=== PATIENT | female | born 1970 | race Caucasian/White ===

== ENCOUNTER 2021-09-08 05:21 | Day surgery (SDC) | payer BC, SELFPAY ==
--- NOTE | 2021-09-05 16:28 | PCM.HP.BLA ---
History and Physical Date of Admission: 09/05/21 Pre-Op History and Physical ? HPI: The patient is a 51 year old female presenting for discussion regarding surgical intervention. Patient reports having irregular bleeding despite taking Aygestin. Patient reports is taking Aygestin 5 mg 3-4 times daily. Patient reports she is spotting on daily basis. When she does have her menses its lasting for approximately 2 weeks. Patient reports she is now having clots and more discomfort with cramping. Patient at this time would like to proceed with surgical intervention. Patient has had a previous uterine ablation. Patient offers no other concerns today. ? Pre-operative visit. She is scheduled for TLH, b/l salpingectomy and cysto, for AUB, dysmenorrhea, s/p uterine ablation on 09/08/21. Procedure discussed along with risks, benefits and complications. Other alternatives discussed for management. Consent form signed? Yes. ? ? PAST MEDICAL HISTORY PAST MEDICAL HISTORY Diagnosis Date ? Carpal tunnel syndrome on both sides ? ? Flat feet ? ? Heartburn 08/12/2018 ? Hypoglycemia ? ? Hypoglycemia, unspecified ? ? Migraines ? ? Previously seeing neurology ? Multiple thyroid nodules ? ? Obesity (BMI 30-39.9) ? ? Other forms of migraine ? ? ? PAST SURGICAL HISTORY PAST SURGICAL HISTORY Procedure Laterality Date ? HYSTEROSCOPY ? 08/22/2018 ? HYSTEROSCOPY WITH ENDOMETRIAL ABLATION ? LAPAROSCOPIC CHOLEYCYSTECTOMY ? 1997 ? Cholecystectomy, lap ? LIGATE FALLOPIAN TUBE ? 1997 ? Tubal ligation ? PAST SURGICAL HISTORY OF Bilateral 2006 ? Heel Spur Surgery ? PAST SURGICAL HISTORY OF Right 1987 ? Wrist surgery DeQuervains and cysts ? REVISE MEDIAN N/CARPAL TUNNEL SURG Bilateral 12/04/2018 ? Bilateral carpal tunnel syndrome and excision of soft tissue mass right index finger ? SHOULDER SURGERY HX Left 2005 ? TUBAL LIGATION HX ? 1996 ? ? ? CURRENT MEDICATIONS Current Outpatient Medications Medication Sig Dispense Refill ? meloxicam (MOBIC) 15 mg tablet TAKE 1 TABLET BY MOUTH EVERY DAY 30 tablet 1 ? norethindrone (AYGESTIN) 5 mg tablet Take 1 tablet by mouth once daily. 90 tablet 0 ? multivitamin (MULTIPLE VITAMINS ORAL) Take by mouth once daily. ? ? ? IBUPROFEN 800 MG TAB Take one(1) tablet every eight(8) hours as needed for pain. ? 0 ? docusate sodium (COLACE) 100 mg capsule Take 1 capsule by mouth twice daily. 30 capsule 0 ? oxyCODONE-acetaminophen (PERCOCET) 5-325 mg tablet Take 1 tablet by mouth every 6 hours as needed for pain. FOR PAIN. 5 tablet 0 ? norethindrone (AYGESTIN) 5 mg tablet Take 1 tablet by mouth once daily. 30 tablet 5 ? No current facility-administered medications for this visit. ? ? ALLERGIES: Lodine [Etodolac], Nsaids (Non-Steroidal Anti-Inflammatory Drug), and Vicodin [Hydrocodone-Acetaminophen] ? PERSONAL HISTORY: SOCIAL HISTORY Social History ? Tobacco Use ? Smoking status: Former Smoker ? ? Packs/day: 0.50 ? ? Years: 20.00 ? ? Pack years: 10.00 ? ? Types: Cigarettes ? ? Quit date: 02/07/2006 ? ? Years since quittin.5 ? Smokeless tobacco: Never Used Vaping Use ? Vaping Use: Never used Substance Use Topics ? Alcohol use: Yes ? ? Comment: 1/year ? Drug use: No ? FAMILY HISTORY: FAMILY HISTORY FAMILY HISTORY Problem Relation Age of Onset ? Breast Cancer Mother ? ? Hypertension Mother ? ? Diabetes Mother ? ? Heart Mother ? ? Hyperlipidemia Father ? ? other (dementia) Father ? ? Prostate Cancer Brother ? ? other (throat cancer) Brother ? ? Breast Cancer Maternal Grandmother ? ? Diabetes Maternal Aunt ? ? Coronary Artery Disease Mother ? ? Psychiatry Mother ? ? Colon Cancer Maternal Grandmother ? ? Coronary Artery Disease Paternal Grandfather ? ? Coronary Artery Disease Maternal Grandfather ? ? Coronary Artery Disease Maternal Grandmother ? ? Coronary Artery Disease Paternal Grandmother ? ? Coronary Artery Disease Father ? ? ? REVIEW OF SYMPTOMS: negative except as noted above PHYSICAL EXAMINATION: ? VITALS: Blood pressure 136/80, height 5' (1.524 m), weight 194 lb (88 kg), last menstrual period 05/25/2021. ? GENERAL: The patient is well nourished, well hydrated in no acute distress. , The patient is oriented to time, place, and person. NECK: full range of motion LUNGS: Clear to auscultation bilaterally. no wheezes, rhonchi or rales HEART: Regular rate and rhythm, Normal heart sounds and No murmurs or gallops GENITALIA: Normal external genitalia, Urethral meatus normal, Bladder nontender, normal vagina and normal vaginal tone, normal uterus, size and consistency, normal adnexa without masses or tenderness and perineum WNL WET PREP: Not indicated ? IMPRESSION: AUB, dysmenorrhea, status post endometrial ablation ? PLAN: TLH, Bilateral salpingectomy, Cysto ? ? Pt has been counseled on risks/benefits and alternatives of surgery including but not limited to anesthesia, bleeding, infection, injury to pelvic structures including bowel, bladder, ureters and vessels. Pt wishes to proceed with surgery at this time. ? COVID testing reviewed ? Pre and postop instructions reviewed. Postoperative medications reviewed and ordered. Patient will use Mobic after surgery. Discussed with her she will go home same day of surgery as long as there is no complications and she is meeting criteria. I have reviewed and updated past medical and surgical history, medications and allergies ? Neyda Rodríguez MD Office Visit on 08/26/2021 Office Visit on 08/26/2021 Note shared with patient
[2021-09-07 10:40] LABS: Hematocrit 42.6 % (37-47); Hemoglobin 13.6 g/dL (12.0-15.0); Mean Corp Hgb Conc 31.9 g/dL (32-36); Mean Corpuscular Volume 87.7 fL (81-99); Mean Platelet Vol. 10.3 fl (6.2-12.0); Platelet Count 305 K/mm3 (150-450); RBC Distribution Width CV 14.3 % (11.6-14.6); RBC Distribution Width SD 46.5 fl (35.1-43.9); Red Blood Count 4.86 M/mm3 (4.2-5.4); White Blood Count 9.7 K/mm3 (4.4-11.0)
[2021-09-07 11:02] LABS: Magnesium 2.1 mg/dL (1.6-2.6)
[2021-09-07 11:11] LABS: Anion Gap 4 (5-15); BUN 10 mg/dL (7-18); Calcium,Total 8.6 mg/dL (8.5-10.1); Chloride 108 mmol/L (98-107); Creatinine, Serum 0.72 mg/dL (0.55-1.02); EST Glomerular Filtration Rate 91 mL/min (>60); Est Glom Filt Rate - Afr Amer 110 mL/min (>60); Glucose 90 mg/dL (74-106); Potassium 4.3 mmol/L (3.5-5.1); Sodium Level 138 mmol/L (136-145)
[2021-09-08] VITALS (8 sets, daily range): BP systolic 124–140; BP diastolic 68–88; PULSE 67–85; RESP 16–18; TEMP 36.1–36.7; O2SAT 98–100; BMI 37.7
[2021-09-08] MEDS: Lactated Ringers 1,000 ML 40 ML IV (06:10)
--- NOTE | 2021-09-08 06:12 | EKG12_ITS ---
Test Reason : PRE-OP Blood Pressure : / mmHG Vent. Rate : 071 BPM Atrial Rate : 071 BPM P-R Int : 110 ms QRS Dur : 082 ms QT Int : 394 ms P-R-T Axes : 030 027 019 degrees QTc Int : 428 ms Sinus rhythm with sinus arrhythmia with short IA Otherwise normal ECG Confirmed by SANNA STEPHENS, EULALIA ([id number]), manuscript editor ECTOR PEDERSEN ([id number]) on 09/08/2021 6:14:05 AM Referred By: Neyda Rapp Confirmed By:EULALIA ISIDRO MD
[2021-09-08 06:19] LABS: Internal QC Validated? YES +Cl - CLEAR BKGD; Pregnancy, Urine Negative Negative
[2021-09-08] MEDS: Phenazopyridine 95 MG Tablet 190 MG PO (06:28)
[2021-09-08] MEDS: Enoxaparin 40 MG/0.4 ML Syringe SC (06:29)
[2021-09-08] MEDS: dexAMETHasone 10 MG/ML Vial 8 MG IV (06:29)
[2021-09-08] MEDS: Gabapentin 600 MG Tablet PO (06:32)
[2021-09-08] MEDS: Scopolamine 1mg/72hr Patch 1 PATCH TD (06:48)
[2021-09-08] MEDS: Lubricating Jelly 60 GM Tube 30 GM TOPICAL (07:24)
[2021-09-08] MEDS: Lactated Ringers 1,000 ML 70 ML IV (07:30)
[2021-09-08] MEDS: Acetaminophen 500 MG Tablet 1000 MG PO (07:30)
--- NOTE | 2021-09-08 07:30 | HYST_PTH ---
PATIENT: GABRIELLE SHAH LOC: [facility] [place] U#:[id number] AGE/SX: 51/F ROOM: RE09/08/[address]: Dr. Neyda Rapp, MDDOB: 1970 BED: DIS: 09/08/2021 SPEC #: [id number] RECD: 09/08/21 11:13 STATUS: MAYO ARACELI #: [id number] SANTINO: 09/08/21 07:[address]: Neyda Rapp DEPT: SURGICAL PATHOLOGY RECD BY: Nini De ENTERED: 09/08/21 11:58 SP TYPE: HYSTERECT OTHR DR: Dr. Issa Power MD Tissues: Uterus, NOS Procedures: Surgery Specimen Level V HEADER OPERATION: ERAS, hysterectomy, TLH, salpingectomy, cysto PRE-OP DIAGNOSIS: Abnormal uterine bleeding, dysmenorrhea, status post endometrial ablation TISSUE SUBMITTED: Cervix, uterus and bilateral fallopian tubes MICROSCOPIC DIAGNOSIS Uterus, cervix and bilateral fallopian tube, hysterectomy and bilateral salpingectomy: Cervix ? chronic cystic cervicitis. Endometrium ? changes consistent with previous endometrial ablation. Myometrium ? diffuse adenomyosis. - Intramural and submucosal leiomyomas (largest measuring 2 cm in greatest dimension). Bilateral fallopian tubes - no pathologic diagnosis. SJ:judy 09/09/2021 MICROSCOPIC DESCRIPTION Slides are reviewed. GROSS DESCRIPTION Received in fixative is one container labeled with the patient's name and designated cervix, uterus and bilateral fallopian tubes. The specimen consists of a hysterectomy specimen consisting of uterus with cervix and detached bilateral fallopian tubes. The uterus with cervix weighs 274 gm and measures 9 x 6 x 11 cm. The ectocervical mucosa is unremarkable. The external os is oval in contour. The endocervical canal measures 4 cm in length and the endocervical mucosa is díaz, glistening and unremarkable. The endometrial cavity is narrow and measures 4.5 cm in length and 0.8 cm in width. The endometrium is díaz, glistening without any mass lesion and measures 0.1 cm in thickness. Sections of the uterine wall reveal submucosal and intramural nodular masses, the largest measuring 2 cm in greatest dimension. Sections of these masses reveal díaz whorled cut surfaces without areas of hemorrhage, necrosis or cystic degeneration. Sections of the uterine wall also reveal trabeculated cut surfaces suspicious for adenomyosis. The uterine wall measures up to 3.5 cm in thickness. One of the fallopian tubes measure 3 cm in length and 0.5 cm in diameter. Sections reveal unremarkable cut surfaces. The fimbrial end is identified. The second fallopian tube appears to be disrupted and measures 4 cm in length and 0.5 cm in diameter. The fimbrial end is identified. Sections reveal unremarkable cut surfaces. Pneumatic Tester sections are submitted in ten cassettes as follows: 1 - anterior cervix, 2 - posterior cervix, 3 & 4 - anterior uterine wall, 5 & 6 - posterior uterine wall, 7 - nodular masses, 8 - more sections uterine wall, 9 - one fallopian tube, entirely submitted, 10 - second fallopian tube. / SJ:rg 09/08/21 TC:5 CPT: 40636
[2021-09-08] MEDS: Cefazolin 2 GM in 0.9% Normal Saline 100 ML IV (07:33)
--- NOTE | 2021-09-08 09:13 | PCM.OPRPT ---
Problems Associated Problem List Diagnoses (1) Abnormal uterine bleeding (AUB): (2) S/P endometrial ablation: Report of Operation Date of Procedure: 09/08/21 Pre-Operative Diagnosis: AUB, S/p endometrial ablation, dysmenorrhea Post-Operative Diagnosis: same Surgery/Procedure Performed:: TLH, Bilateral salpingectomy, Cystoscopy Description of Surgical Findings:: uterus boggy and bulky, normal ovaries. Previous tubal appreciated. peritoneal window noted lower left lateral aspect Surgeon: Neyda Rapp farm equipment engineer: Lory Hernandez farm equipment engineer: Roseline Rowe Type of Anesthesia: General and Local Special Medications: 0.5% marcaine Specimen's removed: uterus, bilateral tubes, cervix Drains: none Estimated Blood Loss (mL): 50 Fluids Replaced: 1400 Description of Procedure: Patient take to OR and prepped and draped in usual sterile fashion in dorsal lithotomy position with her arms tucked in a neurologically safe and neutral position. The uterus sounded to 9cm. The training program manager uterine manipulator was sutured into place at 12 position and ramirez were placed. Attention was turned to the abdomen. All port sites were infiltrated with .5% marcaine before the incisions were made. The anterior abdominal wall was tented up with towel clamps and using a direct entry approach a 5 mm intraumbilical port was placed. Intraperitoneal placement was confirmed with the laparoscope and the pneumoperitoneum was created. The patient was placed in Trendelenburg and 5 mm right and left lower quadrant ports were placed under direct visualization. Air seal rapid insufflator was used. The bowel was swept away. Ovaries appeared normal. The mesosalpinx starting at fimbriated end were grasped, clamped, sealed and transected with the Ligasure. The round ligaments were divided. The anterior peritoneum was dissected down to create the bladder flap with blunt dissection and the LigaSure. The uterine arteries were isolated, clamped, sealed and cut. There was minimal back bleeding from the uterus. Straight bites on uterine artieries performed to drop them off the cuff. The training program manager was used as guide to create colpotomy using monopolar tip of ligasure. once specimen was removed attention was turned to vaginal portion. The specimen was handed off. The cuff was closed with interrupted 0-vicryl figure of 8 sutures. weight of uterus 290grams in OR Cystoscopy was performed bilateral ureters were visualized with good efflux. bladder was intact. Bladder drained and sponge stick placed in vagina. The pneumoperitoneum was recreated and the cuff and pedicles were hemostatic. Kathleen was placed over cuff and pedicles. The skin incisions were closed with skin glue and 3-0 monocryl in the LLQ port site. The vaginal sweep was completed by me. Grafts/Implants Used: none Roseline PERALTA assisted in camera placement and manipulation of tissue until Dr. Hernandez was available - she scrubbed in Roseline Leger scrubbed out and Dr. Hernandez assisted with remained portion of surgery- assisted in manipulating tissue, camera and retraction. no qualified resident was available. Grafts/Implants Used: none Procedure Start Time: 07:46 Procedure Stop Time: 09:24 Complications none Admit VTE Documentation VTE Present on Admission: Yes VTE Mechan Device Prophylaxis: SCD's VTE Pharm Prophylaxis ordered?: Yes
[2021-09-08] MEDS: Bupivacaine Mpf 0.5% 30 ML VIAL (09:15)
--- NOTE | 2021-09-08 09:25 | EX.PCM.DISCH ---
Discharge Instructions Diet Discharge Diet: No restrictions Activity Discharge Activity: May Not Drive (while taking narcotics. may drive when pain controlled. ) and May Shower Return to work on:: 06/16/21 May shower in (days): 1 May resume sexual activity in: 6-8 weeks Weight Bearing Status: Full weight bearing Lifting Restrictions: 20 Additional Activity Instructions:: NOTHING IN THE VAGINA x 6-8 weeks. Dressing / Incision Call your doctor if your incision/area has: Continuous Slow Oozing, Sudden Increased Bleeding, Increased Pain/ Swelling, Increased Redness, Foul Smelling Discharge and Swelling at the incision site Call your doctor if you observe: Fever of 101 or Higher, Inability to have a bowel movement, Using more than 1 pad per hour and Uncontrolled pain Change Dressing in: leave in place till F/U (you have skin glue over incision sites- do not pick off) Cleanse incision/area with: Soap & Water, Keep Dressing Clean & Dry and - (you may let soap and water run over incision sites and dab dry. ) Follow Up Care Please Follow Up With: Neyda Rapp MD When: 2 weeks as scheduled for post op visit Test Results: Test results from this visit will be discussed in further detail at your follow-up appointment, if applicable. Discharge Plan Admission Attending Provider: Neyda Rapp Primary Care Provider: Issa Power Discharge Orders/Prescriptions Prescriptions: No Action acetaminophen [Tylenol] 325 mg Tablet 1,000 mg PO DAILY RF: 0 multivitamin with iron Tablet 1 tab PO DAILY RF: 0 Referrals / Follow Up: Issa Power MD [Primary Care Provider] - Disposition Disposition (needs filled in before D/C Order can be placed): Home, Self Care
[2021-09-08 12:07] LABS: Hematocrit 40.3 % (37-47); Hemoglobin 12.8 g/dL (12.0-15.0); Mean Corp Hgb Conc 31.8 g/dL (32-36); Mean Corpuscular Hgb 28.3 pg (27.0-32.0); Mean Corpuscular Volume 89.2 fL (81-99); Mean Platelet Vol. 10.9 fl (6.2-12.0); Platelet Count 272 K/mm3 (150-450); RBC Distribution Width CV 14.3 % (11.6-14.6); RBC Distribution Width SD 46.5 fl (35.1-43.9); Red Blood Count 4.52 M/mm3 (4.2-5.4); White Blood Count 15.2 K/mm3 (4.4-11.0)
== END 2021-09-08 12:50 | disposition home or self-care (01) ==
LOC: SDC 05:23 → AC 05:25
PROVIDERS: Anesthesiology; PCP Family Medicine; Referring Provider Obstetrics & Gynecology; Visit Provider Obstetrics & Gynecology
PROC: 0UT94ZZ Resection of Uterus, Percutaneous Endoscopic Approach (ICD-10-PCS; CPT 58573; principal; 2021-09-08 07:15)
DX: D25.0 Submucous leiomyoma of uterus (principal); M19.90 Unspecified osteoarthritis, unspecified site; K21.9 Gastro-esophageal reflux disease without esophagitis; D25.1 Intramural leiomyoma of uterus; N72 Inflammatory disease of cervix uteri; Z20.822 Contact with and (suspected) exposure to COVID-19; E66.9 Obesity, unspecified; Z68.37 Body mass index [BMI] 37.0-37.9, adult; Z79.1 Long term (current) use of non-steroidal anti-inflammatories (NSAID); Z79.899 Other long term (current) drug therapy; Z87.891 Personal history of nicotine dependence; Z90.49 Acquired absence of other specified parts of digestive tract
CPT/HCPCS: 00840; 58573; 36415; 80048; 81025; 83735; 85027; 87426; 88307; 93005; C9803; J7120; J2405

== ENCOUNTER → 2023-04-26 | Outpatient (CLI) | payer BC, SELFPAY | END | disposition home or self-care (01) | LOC: SL 10:57 | PROVIDERS: PCP Student in an Organized Health Care Education/Training Program; Referring Provider Student in an Organized Health Care Education/Training Program; Visit Provider Student in an Organized Health Care Education/Training Program | DX: G47.10 Hypersomnia, unspecified (principal) | CPT/HCPCS: 95806 ==